=== PATIENT | male | born 1965 | race Asian ===

== ENCOUNTER 2017-08-17 12:19 | Day surgery (SDC) | payer OTHER ==
[2017-08-17] MEDS ORDERED: MIDAZOLAM 1 MG/ML 2 ML INJ ×3 (14:46)
[2017-08-17] MEDS ORDERED: FENTAnyl 50 MCG/ML VIAL (14:46)
== END 2017-08-17 16:29 | disposition home or self-care (01) ==
LOC: GIL 12:19
DX: Z12.11 Encounter for screening for malignant neoplasm of colon (principal); K44.9 Diaphragmatic hernia without obstruction or gangrene; K21.9 Gastro-esophageal reflux disease without esophagitis; K64.8 Other hemorrhoids; K29.70 Gastritis, unspecified, without bleeding; I10 Essential (primary) hypertension
CPT/HCPCS: 43239; 88305; 88312